=== PATIENT | female | born 1980 | race Caucasian/White ===

== ENCOUNTER 2017-11-23 17:59 | Emergency (ER) | payer OTHER ==
[2017-11-23 18:13] VITALS: BP 154/98; PULSE 89; RESP 16; TEMP 98; O2SAT 99
--- NOTE | 2017-11-23 18:35 | ED PDOC ---
Lower Extremity Pain/Injury Time Seen by Provider: 11/23/17 18:09 Chief Complaint (Nursing): Lower Extremity Problem/Injury Chief Complaint (Provider): LEft lateral ankle pain after twisting ankle History Per: Patient History/Exam Limitations: no limitations Onset/Duration Of Symptoms: Days Current Symptoms Are (Timing): Still Present Severity: Moderate Pain Scale Rating Of: 7 Additional Complaint(s): PT was walking and did not see an irregular side walk. She was carrying child on chest. Pt states that she "inverted" her ankle and felt a click sensation. Pt denies numbness/tingling. Past Medical History Reviewed: Historical Data, Nursing Documentation, Vital Signs Vital Signs: Last Vital Signs Temp 98.0 F 11/23/17 18:10 Pulse 89 11/23/17 18:10 Resp 16 11/23/17 18:10 BP 154/98 H 11/23/17 18:10 Pulse Ox 99 11/23/17 18:10 - Medical History PMH: No Chronic Diseases - Surgical History Surgical History: No Surg Hx - Family History Family History: States: No Known Family Hx - Living Arrangements Living Arrangements: With Family - Social History Current smoker - smoking cessation education provided: No - Allergies Allergies/Adverse Reactions: Allergies Allergy/AdvReac Type Severity Reaction Status Date / Time No Known Allergies Allergy Verified 11/23/17 18:10 Review of Systems ROS Statement: Except As Marked, All Systems Reviewed And Found Negative Constitutional: Negative for: Fever, Chills Musculoskeletal: Positive for: Other (Ankle pain) Skin: Negative for: Bruising Physical Exam - Reviewed Nursing Documentation Reviewed: Yes Vital Signs Reviewed: Yes - Physical Exam Appears: Positive for: Well, Non-toxic, No Acute Distress Head Exam: Positive for: ATRAUMATIC, NORMAL INSPECTION, NORMOCEPHALIC Skin: Positive for: Normal Color, Warm, DRY Eye Exam: Positive for: Normal appearance ENT: Positive for: Normal ENT Inspection Neck: Positive for: Normal, Painless ROM Respiratory: Negative for: Accessory Muscle Use, Respiratory Distress Pulses-Dorsalis Pedis (L): 2+ Pulses-Post. Tibialis (L): 2+ Back: Positive for: Normal Inspection Extremity: Positive for: Normal ROM, Tenderness (Superior to the lateral malleolous), Swelling (Localized lateral edema over the lateral malleolous ). Negative for: Deformity Neurologic/Psych: Positive for: Alert - ECG O2 Sat by Pulse Oximetry: 99 Medical Decision Making Medical Decision Making: x-ray without acute fracture or dislocation. Air cast and crutches. Disposition - Clinical Impression Clinical Impression: Ankle injury - Patient ED Disposition Is Patient to be Admitted: No Counseled Patient/Family Regarding: Diagnosis, Need For Followup - Disposition Referrals: Abraham Hassan MD [Staff Provider] - Disposition: Routine/Home Disposition Time: 18:45 Condition: GOOD Instructions: Ankle Sprain Forms: [employer] ([place]), [facility] ED School/Work Excuse
--- NOTE | 2017-11-24 09:03 | RAD ---
PROCEDURE: Left Ankle Radiographs. HISTORY: Left ankle pain COMPARISON: None FINDINGS: BONES: No acute fracture. JOINTS: Ankle mortise maintained. Talar dome intact SOFT TISSUES: Lateral malleolar soft tissue swelling. OTHER FINDINGS: Small inferior plantar calcaneal spur. IMPRESSION: Lateral malleolar soft tissue swelling without demonstrated fracture or dislocation.
== END 2017-11-23 18:58 | disposition home or self-care (01) ==
LOC: H.ER 17:59
DX: S99.912A Unspecified injury of left ankle, initial encounter (principal); X50.1XXA Overexertion from prolonged static or awkward postures, initial encounter